=== PATIENT | female | born 1985 | race Caucasian/White ===

== ENCOUNTER → 2017-08-11 15:31 | Outpatient (CLI) | payer BC ==
[~2017-08-11 15:31] MED LIST: NORVASC2.5 MG PO; OMEPRAZOLE20 M1 PO; SINGULAIR10 MG PO
[2017-10-21 06:07] VITALS: BMI 47.1
== END | disposition home or self-care (01) ==
LOC: D.US 15:31
DX: R10.11 Right upper quadrant pain (principal)

== ENCOUNTER 2017-10-21 05:42 | Day surgery (SDC) | payer BC ==
[2017-10-20 16:08] LABS: BASOPHILS 0.1 % (0-2); HEMATOCRIT 36.8 % (36.0-48.0); HEMOGLOBIN 11.7 g/dL (12-16); IMMATURE GRANULOCYTES 0.1 % (0-5); LYMPHOCYTES 28.2 % (15-50); MCH 26.2 pg (26.0-34.0); MCHC 31.8 g/dL (31.0-37.0); MCV 82.5 fL (80.0-100.0); MEAN PLATELET VOLUME 9.8 fL (7.4-10.4); MONOCYTES 9.1 % (2-11); NEUTROPHILS 61.5 % (40-80); PLATELET COUNT 264 10x3/uL (130-400); RBC 4.46 10x6/uL (4.00-5.40); RDW 14.4 % (11.5-14.5); WBC 7.1 10x3/uL (4.8-10.8)
[2017-10-20 16:16] LABS: CALC OSMOLALITY 272 mosm/kg (275-300); CALCIUM 8.3 mg/dL (8.5-10.1); CARBON DIOXIDE 29.3 mmol/L (21.0-32.0); CHLORIDE - SERUM 101 mmol/L (98-107); CREATININE - SERUM 0.7 mg/dL (0.6-1.3); GLUCOSE 96 mg/dL (74-106); POTASSIUM - SERUM 3.4 mmol/L (3.5-5.1); SODIUM 137 mmol/L (136-145); UREA NITROGEN 11 mg/dL (7-18); eGFR NON AFRICAN AMERICAN > 90 mL/min (90-120)
[2017-10-20 16:18] LABS: APTT 31.3 SECONDS (22.8-39.4); INR 1.04 (0.85-1.17); PROTIME 13.2 SECONDS (11.6-15.0)
[~2017-10-21] VITALS: Ht 170.2 cm; Wt 136.1 kg
--- NOTE | ~2017-10-21 | OP ---
PATIENT NAME: ANTONI VALENTINO MEDICAL RECORD: [id number] :87 LOCATION:[facility] ADMISSION DATE: SURGEON: MARGIE ACEVEDO MD DATE OF OPERATION: 10/21/2017 PREOPERATIVE DIAGNOSES: Chronic cholecystitis with cholelithiasis without any biliary obstruction. POSTOPERATIVE DIAGNOSES: Chronic cholecystitis with cholelithiasis without any biliary obstruction. OPERATION PERFORMED: Laparoscopic cholecystectomy with intraoperative cystic duct cholangiogram. SURGEON: Margie Acevedo MD ANESTHESIA: General endotracheal per TRICK RODEO RIDER. PREOPERATIVE NOTE: This self referred 32-year-old white female patient has symptomatic and well documented cholelithiasis without history of jaundice or pancreatitis or liver function abnormality. She is brought to the operating room at this time to perform a laparoscopic cholecystectomy and routine intraoperative cystic duct cholangiogram. DESCRIPTION OF PROCEDURE: Under anesthesia in supine position, the patient was prepped and draped in a sterile manner. The abdomen was entered through a transabdominal midline incision with standard open technique. A Jason trocar was placed, a 10 mm port was placed at the subxiphoid position and 3 other 5-mm ports were placed as usual. The gallbladder was found to be very stiff and contained a single very large stone. There were signs of chronic inflammation, but really no visible signs of acute cholecystitis. The gallbladder was retracted cephalad and dissection in the hepatoduodenal ligament exposed the cystic duct, which was cleared and a critical view obtained and I also exposed a large right hepatic artery and a very short cystic artery. The cystic artery was multiply clipped and divided and then the cystic duct was closed with a clip near the neck of the gallbladder and the duct was incised and a cholangiocatheter inserted through the anterior abdominal wall, was placed in the cystic duct and held in place with another clip. Real time digital C-arm fluoroscopy was used with digital subtraction technique to perform the cholangiogram, which revealed free flow of contrast into the duodenum and no evidence of obstruction or stones or any filling defects or irregularities. There was prominent filling of the intrahepatic ducts, right and left. Subsequently, the cholangiocatheter was removed and the cystic duct multiply clipped and divided. The gallbladder was then detached from its bed in the liver and further from the right hepatic artery with careful electrocautery hook dissection. The gallbladder was not perforated. There was no spillage of its contents. Bleeding was really quite minimal. The gallbladder was placed in a sterile plastic bag and extracted then from the umbilical incision. Pneumoperitoneum was reestablished with reinsertion of the Jason port and the operative field inspected and found to be hemostatic. It was irrigated with saline and then 30 cc of 0.25% Marcaine without epinephrine was sprayed into the subhepatic and subphrenic spaces. The ports were then removed under direct vision. Fascia at the subumbilical site was approximated with interrupted [id number] 0 Vicryl. The wounds were then all irrigated with Ancef/gentamicin solution and infiltrated further with 0.25% Marcaine OPERATIVE REPORT [id number] ANTONI VALENTINO without epinephrine. The wounds were closed, approximating the skin with interrupted inverted 3-0 Vicryl and Dermabond glue. Sterile dressings of Maxorb Ag, Tegaderm, and Cavilon skin prep were applied and the patient awakened from her anesthetic and extubated, was taken to the recovery room. Blood loss during the operation estimated at 25 cc, was unreplaced. All sponges, instruments, and needles were accounted for. No drain was used and the gallbladder with all of its contents were submitted in formalin for histopathology. TRANSINT:[id number] Voice Confirmation ID: [id number] DOCUMENT ID: [id number] MARGIE ACEVEDO MD CC: [id number] DICTATION DATE: 10/21/17 113 EGG AND SPICE MIXER: 10/21/17 1201 [facility] [address] [id number]
[2017-10-21 06:07] VITALS: BP 158/103; Ht 170.2 cm; Wt 136.1 kg
[2017-10-21] MEDS ORDERED: HYDROCODON-ACE1 EAC7 PO (11:12)
== END 2017-10-21 15:10 | disposition home or self-care (01) ==
LOC: D.OPS 05:42 → D.PAN 08:00 → D.OPS 08:00
PROVIDERS: Surgery
DX: K80.10 Calculus of gallbladder with chronic cholecystitis without obstruction (principal); Z01.812 Encounter for preprocedural laboratory examination

== ENCOUNTER 2019-06-25 06:30 | Day surgery (SDC) | payer BC ==
[2019-06-24 15:20] LABS: BASOPHILS 0.2 % (0-2); EOSINOPHILS 0.7 % (0-7); HEMATOCRIT 38.9 % (36.0-48.0); IMMATURE GRANULOCYTES 0.1 % (0-5); LYMPHOCYTES 24.3 % (15-50); MCH 24.6 pg (26.0-34.0); MCHC 30.8 g/dL (31.0-37.0); MCV 79.7 fL (80.0-100.0); MEAN PLATELET VOLUME 9.8 fL (7.4-10.4); MONOCYTES 8.2 % (2-11); NEUTROPHILS 66.5 % (40-80); PLATELET COUNT 300 10x3/uL (130-400); RBC 4.88 10x6/uL (4.00-5.40); RDW 16.3 % (11.5-14.5); WBC 8.7 10x3/uL (4.8-10.8)
[2019-06-24 15:37] LABS: CALC OSMOLALITY 279 mosm/kg (275-300); CARBON DIOXIDE 29.8 mmol/L (21.0-32.0); CHLORIDE - SERUM 103 mmol/L (98-107); CREATININE - SERUM 0.6 mg/dL (0.6-1.3); GLUCOSE 92 mg/dL (74-106); POTASSIUM - SERUM 3.6 mmol/L (3.5-5.1); SODIUM 141 mmol/L (136-145); UREA NITROGEN 11 mg/dL (7-18); eGFR NON AFRICAN AMERICAN > 90 mL/min (90-120)
[2019-06-24 15:57] LABS: INR 0.99 (0.85-1.17); PROTIME 12.6 SECONDS (11.6-15.0)
[~2019-06-25] VITALS: Ht 170.2 cm; Wt 135.6 kg
[~2019-06-25 06:30] MED LIST changes: +HYDROCODON-ACE1 EAC7 PO; +OMEGA-3100 MG PO; +VITAMIN C500 M1 PO; +VITAMIN D250000 UNIT PO; +ZYRTEC10 MG PO
[2019-06-25 06:52] VITALS: BP 151/99; Ht 170.2 cm; Wt 135.6 kg
[2019-06-25 07:09] LABS: HCG URINE NEGATIVE (NEGATIVE)
--- NOTE | 2019-06-25 09:14 | NUR ---
BARD [address] MESH WITHPS ECHO PS REF [id number] LOT# [id number] EXP 04/04/2021
--- NOTE | 2019-06-25 13:30 | NUR ---
1245 TRYING TO ASCERTAIN THE CORRECT SIZE BINDER FOR PT. [facility] IS TO COME MEASURE AND FIT PT WITH THE CORRECT SIZE BINDER.
--- NOTE | 2019-06-25 14:34 | NUR ---
1349 PT REPORTS PAIN LEVEL AT A 4-5 ON SCALE OF 10. REQUESTING PAIN MED BEFORE BEING DISCHARGED HOME. 1415 JOHN FROM [facility] HERE TO FIT PT FOR BINDER. IV DC'D. CATHETER TIP INTACT. NO BLEEDING AT SITE. BANDAID APPLIED. PT WANTS TO GET DRESSED BEFORE BINDER IS FITTED. 1425 PT HAS ON APPROPRIATE SIZE BINDER AND KNOWS TO WEAR IT 24/7 EXCEPT WHEN SHOWERING.
--- NOTE | 2019-06-28 16:25 | OP ---
PATIENT NAME: ANTONI ESPARZA MEDICAL RECORD: [id number] :87 LOCATION:[facility] ADMISSION DATE: SURGEON: MARGIE ACEVEDO MD DATE OF OPERATION: 06/25/2019 PREOPERATIVE DIAGNOSIS: Initial reducible periumbilical incisional hernia without obstruction or gangrene. POSTOPERATIVE DIAGNOSIS: Initial reducible periumbilical incisional hernia without obstruction or gangrene. OPERATION PERFORMED: Laparoscopic repair utilizing a 15 cm diameter circular [address] mesh with ECHO 1 Positioning system. SURGEON: Margie Acevedo MD ANESTHESIA: General endotracheal per [employer]. PREOPERATIVE NOTE: Ms. Esparza is a 34-year-old white female patient who was self-referred. She had a laparoscopic cholecystectomy last year and has developed a symptomatic reducible incisional hernia at the subumbilical incision site. She is rather obese and high risk for herniation. She is brought to the operating room at this time for a laparoscopic repair. Under general endotracheal anesthesia in supine position, the patient was prepped and draped in a sterile manner. The left arm was placed at her side and the right arm was abducted on an arm board. The abdomen was entered through a small incision in the left upper quadrant utilizing a 5-mm 0-degree laparoscope and a 5-mm Optiview Xcel port. The abdomen was insufflated with carbon dioxide and we switched to a 30-degree angled 5-mm scope. The hernia defect was immediately easily seen. There were no adhesions or incarcerated content. There was a fatty layer around the margin of the hernia, which I felt should be removed prior to application of a mesh barrier. I inserted a total of 4 additional 5-mm ports, 2 at the level of the umbilicus, right and left and 2 in the left and right lower quadrant. I exchanged the 5-mm port in the left upper quadrant for a 10. The fatty material adjacent to the hernia defect was removed with Harmonic scalpel and there was no bleeding. That fatty tissue was removed at the end of the case and discarded. I inserted a 15 mm diameter circular Vent[address] ST hernia mesh with an ECHO positioning system and this unfurled very easily. A small incision was made in the center of the hernia defect through the skin and a Ronn-Tim suture passer was inserted and this picked up the inflation tubing from the ECHO system and pulled out, so that the balloon could be inflated and the prosthesis pulled up against the anterior abdominal wall. The mesh was held in place then with 2 loads of AsorbaTack. Fixation was quite good with very appropriate symmetrical spread of the mesh, which covered the defect with a large overlap circumferentially. The ports were then removed under vision. The left upper quadrant port site fascia was closed with a Ronn-Tim suture passer and 0 Vicryl ties. The wounds were infiltrated with 0.25% Marcaine without epinephrine and closed with interrupted inverted 3-0 Vicryl and Dermabond glue. They were dressed with Maxorb Ag, Tegaderm, and Cavilon skin prep. The patient was given parenteral Toradol and then awakened and extubated and taken to the recovery room. Blood loss throughout was very minimal about 2 cc. None was replaced. Sponges, instruments, and needles were accounted for. No drain was used. OPERATIVE REPORT [id number] ANTONI ESPARZA PLAN: The patient will go home today. She will resume activities gradually as tolerated and resume diet as tolerated. She will continue all of her same medications and is given a prescription for [place] 5/325, #20, she can take 1-2 every 4-6 hours p.r.n. for pain. She is encouraged to use ice off-and-on on the abdomen and wear an abdominal binder 31/03. She may take instead or in addition to the [place], 400 mg of ibuprofen orally every 6 hours p.r.n. for pain. I will see her back in my office next week. TRANSINT:[id number] Voice Confirmation ID: [id number] DOCUMENT ID: [id number] MARGIE ACEVEDO MD at 1625 CC: [id number] DICTATION DATE: 06/25/19 1103 SEASONAL RECRUITER: 06/25/19 1125 [facility] 06/25/19 [place] [id number] [place] [id number]
== END 2019-06-25 14:40 | disposition home or self-care (01) ==
LOC: D.OPS 06:30 → D.PAN 08:00 → D.OPS 14:40
PROVIDERS: ATTEND Surgery
DX: K43.2 Incisional hernia without obstruction or gangrene (principal)

== ENCOUNTER → 2019-07-02 12:04 | Outpatient (CLI) | payer BC ==
[2019-06-25 06:52] VITALS: BMI 46.9
[2019-07-02 12:49] LABS: BASOPHILS 0.1 % (0-2); EOSINOPHILS 0.9 % (0-7); HEMATOCRIT 36.8 % (36.0-48.0); HEMOGLOBIN 11.4 g/dL (12-16); IMMATURE GRANULOCYTES 0.1 % (0-5); LYMPHOCYTES 21.7 % (15-50); MCH 24.8 pg (26.0-34.0); MEAN PLATELET VOLUME 9.5 fL (7.4-10.4); MONOCYTES 10.3 % (2-11); NEUTROPHILS 66.9 % (40-80); PLATELET COUNT 347 10x3/uL (130-400); RDW 16.3 % (11.5-14.5)
[2019-07-02 13:31] LABS: APPEARANCE CLEAR (CLEAR); BILIRUBIN NEGATIVE (NEGATIVE); COLOR YELLOW (YELLOW); GLUCOSE NEGATIVE (NEGATIVE); KETONE NEGATIVE (NEGATIVE); NITRITE NEGATIVE (NEGATIVE); PROTEIN NEGATIVE (NEGATIVE); SPECIFIC GRAVITY 1.005 (1.005-1.020); UROBILINOGEN NORMAL (NORMAL); WHITE CELLS - URINE 0-5 /hpf (NEGATIVE)
[2019-07-02 13:32] LABS: BACTERIA FEW /hpf (NEGATIVE); RED CELLS - URINE 0-5 /hpf (0-5)
== END | disposition home or self-care (01) ==
LOC: D.RAD 12:04
PROVIDERS: ATTEND Surgery
DX: T81.40XA Infection following a procedure, unspecified, initial encounter (principal); R50.9 Fever, unspecified; R07.9 Chest pain, unspecified